=== PATIENT | male | born 1950 | race Caucasian/White ===

== ENCOUNTER 2022-03-05 14:39 | Emergency (ER) | payer OTHER, MEDICARE ==
[~2022-03-05] VITALS: Ht 177.8 cm; Wt 93.2 kg
[2022-03-05] MEDS ORDERED: LOSA100T45 PO (14:50)
[2022-03-05] MEDS ORDERED: DILT120C77 PO (14:50)
[2022-03-05] MEDS ORDERED: ELIQ5TAB PO (14:50)
[2022-03-05] MEDS ORDERED: VITMTA PO (14:50)
[2022-03-05] MEDS ORDERED: DOCU-153 PO (14:50)
[2022-03-05] MEDS ORDERED: DITR1TAB PO (14:50)
[2022-03-05] MEDS ORDERED: FIBE625T PO (14:50)
[2022-03-05] MEDS ORDERED: TERA10CA3 PO (14:50)
[2022-03-05] MEDS ORDERED: LIDOCAINE W/EPINEPHRINE 1% 20ML VIAL SC ONE (16:40)
[2022-03-05 18:13] VITALS: BP 159/87
== END 2022-03-05 18:14 | disposition home or self-care (01) ==
LOC: M ED 14:39
DX: S81.011A Laceration without foreign body, right knee, initial encounter (principal); W31.2XXA Contact with powered woodworking and forming machines, initial encounter; E78.5 Hyperlipidemia, unspecified; I10 Essential (primary) hypertension; F10.10 Alcohol abuse, uncomplicated; Z86.79 Personal history of other diseases of the circulatory system; Z95.0 Presence of cardiac pacemaker; Z79.01 Long term (current) use of anticoagulants; Z79.899 Other long term (current) drug therapy; Y92.9 Unspecified place or not applicable; Y93.9 Activity, unspecified; Y99.9 Unspecified external cause status